=== PATIENT | female | born 1955 | race Caucasian/White ===

== ENCOUNTER 2019-03-06 02:29 | Outpatient (CLI) | payer SELFPAY ==
[2019-03-06 10:51] LABS: HEMOGLOBIN A1C 5.7 % (4.5-6.2)
[2019-03-06 10:59] LABS: CHOL/HDL RATIO 3.21 (0.00-4.99)
== END 2019-03-06 23:59 | disposition home or self-care (01) ==
LOC: HW HEART 02:29
DX: Z13.6 Encounter for screening for cardiovascular disorders (principal)
CPT/HCPCS: 36415; G0438

== ENCOUNTER 2020-01-06 05:27 | Outpatient (CLI) | payer SELFPAY ==
[2020-01-06 10:25] LABS: HEMOGLOBIN A1C 5.6 % (4.5-6.2)
[2020-01-06 10:37] LABS: CHOL/HDL RATIO 2.74 (0.00-4.99)
== END 2020-01-06 23:59 | disposition home or self-care (01) ==
LOC: HW HEART 05:27
DX: Z13.6 Encounter for screening for cardiovascular disorders (principal)
CPT/HCPCS: 36415